=== PATIENT | male | born 1985 | race Caucasian/White ===

== ENCOUNTER 2017-03-18 00:14 | Emergency (ER) | payer MEDICAID, OTHER ==
[~2017-03-18] VITALS: Ht 182.9 cm; Wt 114.0 kg
[2017-03-18] MEDS ORDERED: METOCLOPRAMIDE 5 MG/ML, 2ML ONE (00:51)
[2017-03-18] MEDS ORDERED: KETOROLAC 30 MG/1 ML ONE (00:51)
[2017-03-18] MEDS ORDERED: KETOROLAC 30 MG/1 ML IVPush ONE (01:00)
[2017-03-18] MEDS ORDERED: METOCLOPRAMIDE 5 MG/ML, 2ML IVPush ONE (01:00)
[2017-03-18] MEDS ORDERED: SODIUM CHLORIDE 0.9% 1,000ML IVBOLUS ONE (01:00)
[2017-03-18] MEDS ORDERED: ONDANSETRON 2MG/ML, 2ML IVPush ONE (01:30)
[2017-03-18] MEDS ORDERED: ZIPRASIDONE 20 MG INJ IM ONE ×2 (01:30→01:31)
[2017-03-18] MEDS ORDERED: ONDANSETRON 2MG/ML, 2ML ONE (01:31)
[2017-03-18 01:48] VITALS: BP 106/51
== END 2017-03-18 03:00 | disposition home or self-care (01) ==
LOC: ED 02:45
DX: R11.2 Nausea with vomiting, unspecified (principal); F11.23 Opioid dependence with withdrawal
CPT/HCPCS: 96361; 96372; 96374; 96375; 99284; J1885; J2405; J2765; J3486; J7030